=== PATIENT | male | born 1960 | race Caucasian/White ===

== ENCOUNTER 2019-07-16 14:40 | Emergency (ER) | payer BC, OTHER ==
--- NOTE | 2019-07-16 14:58 | EDM.PDOC ---
ED HPI GENERAL MEDICAL PROBLEM - General Chief Complaint: Cardiovascular Problem Stated Complaint: RACING HEARBEAT Time Seen by Provider: 07/16/19 14:45 Source of Information: Reports: Patient History Limitations: Reports: No Limitations - History of Present Illness INITIAL COMMENTS - FREE TEXT/NARRATIVE: Patient presented to the ED because of a rapid heart beat. He has a h/o SVT , denies any chest pain,dyspnea or dizziness. Upon his arrival in the ED he already converted to a NSR. - Related Data Allergies Allergy/AdvReac Type Severity Reaction Status Date / Time No Known Allergies Allergy Verified 07/16/19 14:52 Home Meds: Home Meds NK [No Known Home Meds] 07/16/19 [History] ED ROS GENERAL - Review of Systems Review Of Systems: See Below Constitutional: Reports: No Symptoms HEENT: Reports: No Symptoms Respiratory: Reports: No Symptoms Cardiovascular: Reports: Palpitations Endocrine: Reports: No Symptoms GI/Abdominal: Reports: No Symptoms : Reports: No Symptoms Musculoskeletal: Reports: No Symptoms Skin: Reports: No Symptoms Neurological: Reports: No Symptoms Psychiatric: Reports: No Symptoms Hematologic/Lymphatic: Reports: No Symptoms ED EXAM, GENERAL - Physical Exam Exam: See Below Exam Limited By: No Limitations General Appearance: Alert Ears: Normal External Exam Nose: Normal Inspection Throat/Mouth: Normal Inspection Head: Atraumatic Neck: Normal Inspection Respiratory/Chest: No Respiratory Distress Cardiovascular: Normal Peripheral Pulses, Regular Rate, Rhythm, No Edema, No Gallop, No JVD, No Murmur Back Exam: Normal Inspection, Full Range of Motion Extremities: Normal Inspection, Normal Range of Motion, Non-Tender Neurological: Alert, Oriented, CN II-XII Intact, Normal Cognition, Normal Gait Course - Vital Signs Text/Narrative:: patient was observed in the ED x 30 min and he is on NSR all throughout and asymptomatic. Last Recorded V/S: Last Vital Signs Temp 37.1 C 07/16/19 14:40 Pulse 76 07/16/19 14:40 Resp 14 07/16/19 14:40 BP 112/77 07/16/19 14:40 Pulse Ox 100 07/16/19 14:40 Departure - Departure Time of Disposition: 14:30 Disposition: Home, Self-Care 01 Condition: Good Clinical Impression: SVT (supraventricular tachycardia) Instructions: Supraventricular Tachycardia, Adult, [id number] Referrals: Gerard Mejia MD [Primary Care Provider] - Forms: ED Department Discharge Additional Instructions: please read discharge instructions on SVT Follow up with your doctor at lest once a year to check your: blood sugar, cholesterol,colonoscopy etc
== END 2019-07-16 15:22 | disposition home or self-care (01) ==
LOC: FB.ED 14:40
DX: I47.1 Supraventricular tachycardia (principal)
CPT/HCPCS: 99285

== ENCOUNTER 2025-04-02 16:44 | Emergency (ER) | payer BC, OTHER ==
[2025-04-02] MEDS ORDERED: Sodium Chloride 0.9% 10 ML Syringe FLUSH PRN (16:50)
[2025-04-02] MEDS: Ketorolac 30 MG/ML SDV IVPUSH ONE (16:56)
[2025-04-02] MEDS: LORazepam 2 MG/ML SDV IVPUSH ONE (16:57)
[2025-04-02] MEDS: Ondansetron 4 MG/2 ML SDV IVPUSH ONE (16:57)
[2025-04-02 17:08] LABS: BASOPHILS ABSOLUTE AUTO 0.1 x10-3/uL (0.0-0.3); BASOPHILS PERCENT AUTO 0.7 % (0.3-3.8); EOSINOPHILS ABSOLUTE AUTO 0.1 x10-3/uL (0.0-0.6); EOSINOPHILS PERCENT AUTO 0.9 % (0.1-6.8); LYMPHOCYTES ABSOLUTE AUTO 3.0 x10-3/uL (0.5-4.5); LYMPHOCYTES PERCENT AUTO 36.4 % (15.8-45.3); MEAN PLATELET VOLUME 7.9 fL (6.7-11.0); MONOCYTES ABSOLUTE AUTO 1.0 x10-3/uL (0.0-1.2); MONOCYTES PERCENT AUTO 11.9 % (5.5-15.2); NEUTROPHILS ABSOLUTE AUTO 4.1 x10-3/uL (1.7-6.9); NEUTROPHILS PERCENT AUTO 50.1 % (40.3-71.8); PLATELET COUNT,PLT 263 x10(3)uL (117-477); RED BLOOD CELL COUNT 5.58 x10(6)uL (3.90-5.90); RED CELL DISTRIBUTION WIDTH 14.0 % (12.4-15.0); WHITE BLOOD CELL COUNT,WBC 8.3 x10-3/uL (3.2-10.1)
[2025-04-02 17:13] LABS: BLOOD UREA NITROGEN,BUN 17 mg/dL (7-18); CARBON DIOXIDE,CO2 22 mmol/L (21-32); CHLORIDE,CL 106 mmol/L (100-110); CREATININE 1.4 mg/dL (0.70-1.30); EST CRCL DRUG DOSING (CG) 56.49 mL/min; ESTIMATED GFR 57 mL/min (>60); GLUCOSE RANDOM 143 mg/dL (80-116); POTASSIUM,K 4.1 mmol/L (3.5-5.3); SODIUM,NA 143 mmol/L (135-145)
[2025-04-02 17:19] LABS: A/G RATIO 1.0; ALANINE AMINOTRANSFERASE,ALT 33 U/L (12-36); ASPARTATE AMNIOTRANSFERASE,AST 23 IU/L (5-25); BILIRUBIN TOTAL 0.6 mg/dL (0.1-1.3); PROTEIN TOTAL,TP 7.9 g/dL (6.0-8.0)
[2025-04-02 17:31] LABS: LACTIC ACID 4.1 mmol/L (0.4-2.0)
[2025-04-02 17:49] LABS: GLUCOSE,URINE NORMAL (NORMAL); OCCULT BLOOD,URINE NEGATIVE (NEGATIVE)
[2025-04-02 17:59] LABS: APPEARANCE,URINE CLEAR (CLEAR)
[2025-04-02] MEDS: HYDROmorphone 2 MG/ML SDV IVPUSH ONE (18:20)
== END 2025-04-02 19:53 | disposition home or self-care (01) ==
LOC: FB.ED 16:44
DX: N13.2 Hydronephrosis with renal and ureteral calculous obstruction (principal); Z79.899 Other long term (current) drug therapy
CPT/HCPCS: 74176; 80053; 81003; 83605; 83690; 84484; 85025; 86140; 93005; 96361; 96374; 96375; 99284; A9270; J1171; J1885; J2060; J2405; J7030; 93010